=== PATIENT | female | born 2000 | race African-American/Black ===

== ENCOUNTER 2022-02-02 10:04 | Emergency (ER) | payer MEDICAID ==
--- NOTE | 2022-02-02 12:34 | Emergency Department Report ---
ED ENT HPI - General Chief complaint: Earache Stated complaint: SEVERE EAR PAIN Time Seen by Provider: 02/02/22 11:54 Source: patient Mode of arrival: Ambulatory Limitations: No Limitations - History of Present Illness Initial comments: 21-year-old female presents to the emergency department for evaluation of left ear pain. She states that she used some Q-tips on Wednesday and Wednesday developed some tenderness to the ear that has gotten progressively worse since then. She states that she use [id number] eardrops that helped her pain initially but now pain is back and worse. She denies fever and drainage from ear. MD complaint: ear pain -: Gradual, days(s) Location: L ear (2-3) Severity: severe Severity scale (0 -10): 10 Quality: aching, constant Worsens with: other (Palpation) Associated Symptoms: tinnitus (`), hearing loss. denies: fever, cough, gum swelling, toothache, pain with swallowing, sore throat, discharge from ear, rhi norrhea - Related Data Previous Rx's Medication Instructions Recorded Last Taken Type Neomy/Polymyx B/Hc (Otic) Soln 4 drops OTIC QID #1 bottle 02/02/22 Unknown Rx [Cortisporin (Otic) Soln] Allergies Allergy/AdvReac Type Severity Reaction Status Date / Time No Known Allergies Allergy Verified 02/02/22 10:22 ED Dental HPI - General Chief complaint: Earache Stated complaint: SEVERE EAR PAIN Time Seen by Provider: 02/02/22 11:54 Source: patient Mode of arrival: Ambulatory Limitations: No Limitations - Related Data Previous Rx's Medication Instructions Recorded Last Taken Type Neomy/Polymyx B/Hc (Otic) Soln 4 drops OTIC QID #1 bottle 02/02/22 Unknown Rx [Cortisporin (Otic) Soln] Allergies Allergy/AdvReac Type Severity Reaction Status Date / Time No Known Allergies Allergy Verified 02/02/22 10:22 ED Review of Systems ROS: Stated complaint: SEVERE EAR PAIN Other details as noted in HPI Constitutional: denies: chills, fever Eyes: denies: eye pain, eye discharge ENT: ear pain, hearing loss Respiratory: denies: cough, shortness of breath, SOB with exertion Cardiovascular: denies: chest pain, palpitations Gastrointestinal: denies: abdominal pain, nausea, vomiting Neurological: denies: headache, weakness, numbness, paresthesias, confusion ED Past Medical Hx - Past Medical History Previous Medical History?: No - Medications Home Medications: Home Medications Medication Instructions Recorded Confirmed Last Taken Type Neomy/Polymyx B/Hc (Otic) Soln 4 drops OTIC QID #1 bottle 02/02/22 Unknown Rx [Cortisporin (Otic) Soln] ED Physical Exam - General Limitations: No Limitations General appearance: alert, in no apparent distress - Head Head exam: Present: atraumatic, normocephalic - Eye Eye exam: Present: normal appearance. Absent: conjunctival injection - Expanded ENT Exam Expanded Ear exam: Present: normal external inspection, other (Pre and postauricular pain along with pain to tragus when palpated) TM/Canal exam: Canal Discharge: Left TM, Canal Tenderness: Left TM - Neck Neck exam: Present: normal inspection. Absent: lymphadenopathy - Respiratory Respiratory exam: Absent: respiratory distress - Cardiovascular Cardiovascular Exam: Present: regular rate - GI/Abdominal GI/Abdominal exam: Absent: distended - Extremities Exam Extremities exam: Present: normal inspection - Back Exam Back exam: Present: normal inspection - Neurological Exam Neurological exam: Present: alert, oriented X3 - Psychiatric Psychiatric exam: Present: normal affect, normal mood - Skin Skin exam: Present: warm, dry, intact, normal color ED Course Vital Signs 02/02/22 10:20 Temperature 98.5 F Pulse Rate 90 Respiratory 20 Rate Blood Pressure 141/99 O2 Sat by Pulse 100 Oximetry ED Medical Decision Making - Medical Decision Making 21-year-old female presents to the emergency department for evaluation of left ear pain. She states that she used some Q-tips on Wednesday and Wednesday developed some tenderness to the ear that has gotten progressively worse since then. She states that she use [id number] eardrops that helped her pain initially but now pain is back and worse. She denies fever and drainage from ear. Exam consistent with left otitis externa. Patient noted to be in significant amount of pain, so she will be given one-time dose of p.o. Decadron and Toradol and discharged home with prescription for Cortisporin drops to use 4 times a day for the next 5 days for treatment of otitis externa. She is advised to take medication as prescribed and follow-up with primary care provider or ENT as needed for further evaluation and management. She verbalized understanding of and agreement with plan of care. Critical care attestation.: If time is entered above; I have spent that time in minutes in the direct care of this critically ill patient, excluding procedure time. ED Disposition Clinical Impression: Otitis externa Qualifiers: Otitis externa type: unspecified type Chronicity: acute Laterality: left Qualified Code(s): H60.502 - Unspecified acute noninfective otitis externa, left ear Disposition: HOME / SELF CARE / HOMELESS Is pt being admited?: No Does the pt Need Aspirin: No Condition: Stable Instructions: Otitis Externa, [id number], Ear Drops, Adult, [id number] Additional Instructions: Use medication as prescribed. Follow-up with primary care provider or ENT doctor as needed for further evaluation and management. Return to the emergency department as needed Prescriptions: Neomy/Polymyx B/Hc (Otic) Soln [Cortisporin (Otic) Soln] 4 drops OTIC QID #1 bottle Referrals: MIGUELANGEL SALAS MD [Referring] - 3-5 Days PHIL RODRIGUEZ MD [Staff Physician] - 3-5 Days Time of Disposition: 12:38
[2022-02-02] MEDS: DEXAMETHASONE 4 MG TAB PO ONE (12:47)
[2022-02-02] MEDS: KETOROLAC 10 MG TAB PO ONE (12:48)
[2022-02-02 13:01] VITALS: BP 115/73
== END 2022-02-02 13:00 | disposition home or self-care (01) ==
LOC: ED 10:04
DX: H60.90 Unspecified otitis externa, unspecified ear (principal)
CPT/HCPCS: 99282; J8540